=== PATIENT | female | born 1985 | race Hispanic/Latino ===

== ENCOUNTER 2019-06-17 07:56 | Day surgery (SDC) | payer BC ==
[2019-06-14 15:19] LABS: BASOPHILS % (AUTO) 0.6 % (0.0-5.0); EOSINOPHILS % (AUTO) 1.5 % (0.0-8.0); HEMATOCRIT 39.3 % (36-48); LYMPHOCYTES % (AUTO) 29.8 % (21.0-51.0); MEAN CORPUSCULAR HGB CONC 31.3 g/dL (32.0-36.0); MEAN CORPUSCULAR VOLUME 83.1 fL (79-99); MONOCYTES % (AUTO) 6.5 % (3.0-13.0); NEUTROPHILS % (AUTO) 61.2 % (40.0-77.0); PLATELET COUNT (AUTO) 277 K/uL (130-400); RED BLOOD CELL COUNT(AUTO) 4.73 MIL/uL (4.00-5.50); RED CELL DISTRIBUTION WIDTH 14.2 % (11.0-15.5); WHITE BLOOD COUNT (AUTO) 5.4 K/uL (4.8-10.8)
[2019-06-14 15:22] VITALS: BP 153/90
[2019-06-14 15:33] LABS: CREATININE 0.7 mg/dL (0.5-1.5); POTASSIUM 3.8 mmol/L (3.5-5.1)
--- NOTE | 2019-06-14 15:34 | NUR ---
Called doctor Yolanda office to notify him that pt started on Antibiotic due to having a sore throat on mon06/12/19, no answer to cell phone, left message.
--- NOTE | 2019-06-14 19:20 | NUR ---
NOTE CALLED DR. RIVER AND LET HIM KNOW THAT PT WAS STARTED ON ANTIBIOTICS DUE TO SORE THROAT ON 06/12/19. PER DR. RIVER, CALL PT AND INSTRUCT HER TO CALL US ON MONDAY IF SHE DOES NOT FEEL ANY BETTER SO WE CAN CANCEL SURGERY. I CALLED AND SPOKE WITH PT, INSTRUCTED TO CALL US MONDAY MORNING IF SHE STILL FEELS SICK, IF SHE DOES NOT FEEL ANY BETTER OR GETS WORSE, OR WITH FEVERS/CONGESTION SO WE MAY CANCEL HER SURGERY. PT VERBALIZED UNDERSTANDING. PT STATES SHE HAS HOSPITAL PHONE NUMBER.
[2019-06-17] VITALS (16 sets, daily range): BP systolic 120–139; BP diastolic 74–100
[~2019-06-17] VITALS: Ht 160 cm; Wt 100.3 kg
[2019-06-17] MEDS: CEFAZOLIN SODIUM 1 GM VIAL IVP SCH ×2 (06:00→13:45)
[~2019-06-17 07:56] MED LIST: AZIT250T9 PO; BENZ200C53 PO
[2019-06-17] MEDS ORDERED: LACTATED RINGERS 1000ML 1,000 ML IV ONE (08:19)
--- NOTE | 2019-06-17 08:51 | NUR ---
SKIN RIGHT SHOULDER CLIPPED AND WIPED WITH GABRIELA PT PILAR WELL
[2019-06-17] MEDS ORDERED: LIDOCAINE PF 2% 5ML ABBOJECT ONE (10:29)
[2019-06-17] MEDS ORDERED: ONDANSETRON HCL 4 MG/2 ML VIAL ONE (10:29)
[2019-06-17] MEDS ORDERED: DEXAMETHASONE SOD PHOSPHATE 10MG/ML 1ML VIAL ONE (10:29)
[2019-06-17] MEDS ORDERED: FENTANYL CITRATE PF 50 MCG/1 ML 2ML VIAL ONE (10:30)
[2019-06-17] MEDS ORDERED: MIDAZOLAM HCL 1 MG/ML 2ML VIAL ONE (10:30)
[2019-06-17] MEDS ORDERED: ROCURONIUM 10MG/1ML SYR 10 MG/ML ML ONE (10:30)
[2019-06-17] MEDS ORDERED: PROPOFOL 10 MG/ML 20ML VIAL IV ONE (10:30)
[2019-06-17] MEDS ORDERED: ROPIVACAINE 0.5% 5MG/ML 30ML IJ ONE (13:14)
[2019-06-17] MEDS ORDERED: GLYCOPYRROLATE 1 MG/5 ML SYRINGE ONE (13:52)
[2019-06-17] MEDS ORDERED: EPHEDRINE SULFATE 50 MG/ML AMPULE ONE (14:16)
[2019-06-17] MEDS ORDERED: CEFAZOLIN SODIUM 1 GM VIAL ONE (14:24)
[2019-06-17] MEDS ORDERED: NEOSTIGMINE 5MG/5ML SYR IV ONE (16:05)
[2019-06-17] MEDS ORDERED: HYDR-4457 PO (16:17)
[2019-06-17] MEDS ORDERED: CEPH-578 PO (16:17)
[2019-06-17] MEDS ORDERED: IBUP-2070 PO (16:17)
== END 2019-06-17 18:00 | disposition home or self-care (01) ==
LOC: DAH 07:56
PROVIDERS: ATTEND Orthopaedic Surgery
DX: M75.111 Incomplete rotator cuff tear or rupture of right shoulder, not specified as traumatic (principal); M75.31 Calcific tendinitis of right shoulder; D64.9 Anemia, unspecified; E66.9 Obesity, unspecified; Z88.5 Allergy status to narcotic agent; Z88.8 Allergy status to other drugs, medicaments and biological substances
CPT/HCPCS: 23040; 23130; 36415; 64415; 80048; 84703; 85025; A4215; A4221; A4222; A4223; A4565; A4600; A4663; A4930; A5120; A6204; J0690 ×2; J1100; J2001; J2250; J2405; J2704; J2710; J2795; J3010; J3490 ×2; J7120 ×2